=== PATIENT | female | born 1945 | race Caucasian/White ===

== ENCOUNTER → 2019-04-01 23:59 | Outpatient (CLI) | payer OTHER, SELFPAY ==
[2019-04-02 00:57] LABS: Rheumatoid Factor < 10.0 IU/mL (<15)
[2019-04-05 16:29] LABS: ANTINUCLEAR ANTIBODIES DIRECT Negative (Negative)
== END ==
PROVIDERS: Referring Provider Nurse Practitioner; Visit Provider Nurse Practitioner
DX: R21 Rash and other nonspecific skin eruption (principal); M25.541 Pain in joints of right hand; M25.542 Pain in joints of left hand
CPT/HCPCS: 86038; 86225; 86235; 86431